=== PATIENT | male | born 1960 | race Caucasian/White ===

== ENCOUNTER 2017-10-01 17:18 | Emergency (ER) | payer MEDICARE, MEDICAID ==
[~2017-10-01] VITALS: Ht 160 cm; Wt 87.0 kg
[~2017-10-01 17:18] MED LIST: ACET-784 PO; ASPI81 PO; FERR-89 PO; FOLI1 PO; LISI-662 PO; NITR.4 SL; PANT40TA25 PO; PHOSLOC PO; SIMV-261 PO; SITA25
[2017-10-01 17:40] VITALS: BP 165/95
== END 2017-10-01 18:08 | disposition home or self-care (01) ==
LOC: EMS 17:22
DX: T82.838A Hemorrhage due to vascular prosthetic devices, implants and grafts, initial encounter (principal); I11.9 Hypertensive heart disease without heart failure; I25.10 Atherosclerotic heart disease of native coronary artery without angina pectoris; E11.9 Type 2 diabetes mellitus without complications; E78.00 Pure hypercholesterolemia, unspecified; Z95.1 Presence of aortocoronary bypass graft
CPT/HCPCS: 82962; 99282

== ENCOUNTER 2018-11-30 15:51 | Emergency (ER) | payer MEDICARE, OTHER ==
[~2018-11-30] VITALS: Ht 167.6 cm; Wt 70.5 kg
[2018-11-30] MEDS ORDERED: IBUP-2354 PO (15:55)
[2018-11-30 16:04] LABS: GLUCOSE,POINT OF CARE 181 MG/DL (70-110)
[2018-11-30] MEDS ORDERED: HYDROCODONE/ACETAMINOPHEN 5-325 MG TABLET PO ONE (16:15)
[2018-11-30 16:38] VITALS: BP 175/83
== END 2018-11-30 16:41 | disposition home or self-care (01) ==
LOC: EMS 15:52
DX: S00.83XA Contusion of other part of head, initial encounter (principal); I25.10 Atherosclerotic heart disease of native coronary artery without angina pectoris; I13.11 Hypertensive heart and chronic kidney disease without heart failure, with stage 5 chronic kidney disease, or end stage renal disease; E11.22 Type 2 diabetes mellitus with diabetic chronic kidney disease; N18.6 End stage renal disease; E78.00 Pure hypercholesterolemia, unspecified; Z99.2 Dependence on renal dialysis; Z95.1 Presence of aortocoronary bypass graft; Z79.899 Other long term (current) drug therapy; Z79.82 Long term (current) use of aspirin; W22.8XXA Striking against or struck by other objects, initial encounter; Y93.02 Activity, running; Y92.89 Other specified places as the place of occurrence of the external cause; Y99.8 Other external cause status